=== PATIENT | male | born 1955 | race Caucasian/White ===

== ENCOUNTER 2021-12-02 14:56 | Emergency (ER) | payer MEDICARE, SELFPAY ==
[2021-12-02] VITALS (48 sets, daily range): BP systolic 132–150; BP diastolic 81–112; PULSE 71–95; RESP 15–28; TEMP 36.9; O2SAT 77–100
--- NOTE | ~2021-12-02 | XR_ITS ---
EXAMINATION: XR chest 1V portable DATE: 12/02/2021 17:38 INDICATION: Dyspnea. Hypoxia. TECHNIQUE: frontal view of the chest was obtained. COMPARISON: Thoracic spine MR dated 03/16/2019. FINDINGS: Chronic severe elevation the right hemidiaphragm as seen on prior MRI dated 03/16/2019 no evident airsp doc opacities, pulmonary edema, pleural effusion or pneumothorax. [Shift of the heart and mediastinum with normal heart size. 3 component thoracolumbar scoliosis. Multiple nodular opacities projecting o chung the lateral right chest wall and right shoulder likely corresponding to multiple subcutaneous nod ules suspicious for neurofibromatosis as previously noted on prior MRI. IMPRESSION: 1. Chronic severe elevation the right hemidiaphragm. No acute cardiopulmonary disease. Reviewed, dictated and finalized at location A. IMPRESSION: 1. Chronic severe elevation the right hemidiaphragm. No acute cardiopulmonary d isease.
--- NOTE | ~2021-12-02 | CT_ITS ---
EXAMINATION: CTA chest PE protocol DATE: 12/02/2021 17:48 INDICATION: Shortness of breath. TECHNIQUE: Computed tomography (CT) pulmonary angiogram of the chest was performed with 100 mL Omnipa que-350 intravenous contrast. Additional 3D reconstructions utilizing coronal maximum intensity proje ction (MIP) were performed. Automated exposure control and iterative reconstruction technique were em ployed. The dose-length product was 444.34 mGy-cm. COMPARISON: Thoracic spine MR dated 03/16/2019 FINDINGS: Good contrast opacification of the pulmonary arteries. There is moderate streak artifact from dense c ontrast remains extending from the site of injection in right upper extremity to the right atrium. Mi ld scattered respiratory motion artifact. This decreases sensitivity in the segmental pulmonary arter ies and renders assessment in the segmental and more significantly in some of the smaller subsegmenta l pulmonary arteries. No pulmonary embolism identified. Very large right-sided Bochdalek hernia which contains multiple loops of bowel as well as the right kidney. This occupies portions of the upper ri ght hemithorax and essentially entire mid to lower right hemithorax. The liver remains normally posit ioned. There is secondary partial collapse of the right lung likely resulting from the [place] stalin ia. No pulmonary edema or pleural effusion. No airspace opacities more suspicious for pneumonia. The heart is displaced further towards the left due to the mass effect from the Bochdalek hernia but dion ins normal in size. No pericardial effusion. Thoracic aorta is normal in caliber with no dissection. No pathologically enlarged thoracic lymphadenopathy. 3 component thoracolumbar scoliosis with upper t horacic dextroscoliosis, lower thoracic levoscoliosis and thoracolumbar dextroscoliosis. Again seen a re prominent nerve root sheath cysts with secondary remodeling expansion of the right-sided neural fo ramina at T11-T12 and T12-L1. No significant change in asymmetric thickening and increased soft tissu e density in the right paraspinal musculature at the thoracolumbar junction better appreciated on alexa or MRI which was suspicious for plexiform neurofibroma. Also consistent with neurofibromatosis are nu merous cutaneous nodules. IMPRESSION: 1. No pulmonary embolism. Sensitivity decreased in the segmental and more prominently in some of the smaller subsegmental pulmonary arteries due to combination of streak artifact and scattered mild phil on artifact. 2. Chronic partial collapse of the right lung likely due to volume loss resulting from a chronic very large Bochdalek hernia containing the right kidney and multiple loops of bowel. Difficult to exclude pneumonia in the collapsed portion of the lung. 3. Stigmata of neurofibromatosis type I. See prior thoracic spine MRI for further detail. Reviewed, dictated and finalized at location A. IMPRESSION: 1. No pulmonary embolism. Sensitivity decreased in the segmental and more promi nently in some of the smaller subsegmental pulmonary arteries due to combinatio n of streak artifact and scattered mild motion artifact. 2. Chronic partial collapse of the right lung likely due to volume loss resulti ng from a chronic very large Bochdalek hernia containing the right kidney and m ultiple loops of bowel. Difficult to exclude pneumonia in the collapsed portion of the lung. 3. Stigmata of neurofibromatosis type I. See prior thoracic spine MRI for furth er detail.
--- NOTE | 2021-12-02 15:19 | ECG_ITS ---
Measurements Intervals [place] Rate: 75 P: 60 RI: 156 QRS: 107 QRSD: 101 T: 91 QT: 362 QTc: 406 Interpretive Statements SINUS RHYTHM RIGHT AXIS DEVIATION BORDERLINE R WAVE PROGRESSION, ANTERIOR LEADS BORDERLINE T WAVE ABNORMALITY- ANT/HIGH LAT LEADS BASELINE ARTIFACT- II, III, AVL, AVF, V1-V6 BORDERLINE ECG NO PREVIOUS ECG AVAILABLE FOR COMPARISON Electronically Signed On 12-02-2021 15:55:33 CDT by Pedro Guillaume D.O.
[2021-12-02 15:55] LABS: Basophils Percent Auto 0.7 % (0.2-1.2); Eosinophils Absolute Auto 0.2 K/mm3 (0-0.3); Eosinophils Percent Auto 3.7 % (0-4.4); Hematocrit 44.7 % (42.0-52.0); Hemoglobin 13.8 g/dL (14.0-18.0); Immature Granulocyte Absolute 0.01 K/mm3 (0.00-0.031); Immature Granulocyte Percent A 0.2 % (0-0.5); Lymphocytes Absolute Auto 0.78 K/mm3 (0.9-3.2); Lymphocytes Percent Auto 19.1 % (18.3-44.2); Mean Corpuscular HGB Conc 30.9 g/dl (32-36); Mean Corpuscular Hemoglobin 29.6 pg (26-34); Mean Corpuscular Volume 95.9 fl (80-100); Mean Platelet Volume 9.6 fl (7.4-10.4); Monocytes Absolute Auto 0.4 K/mm3 (0.1-0.6); Monocytes Percent Auto 9.8 % (2.6-8.5); Neutrophils Absolute Auto 2.7 K/mm3 (1.3-6.7); Neutrophils Percent Auto 66.5 % (45.5-73.1); Platelet Count Result 139 k/mm3 (150-375); Red Blood Count 4.66 M/mm3 (4.6-6.20); Red Cell Distribution Width 14.7 % (11.5-14.5); White Blood Count 4.1 K/mm3 (4.5-10.0)
[2021-12-02 16:13] LABS: Alanine Aminotransferase 6 U/L (6-50); Albumin Level 4.1 g/dL (3.5-5.1); Alkaline Phosphatase 76 U/L (38-126); Anion Gap 9 mmol/L (8-16); Aspartate Amino Transferase 20 U/L (17-59); Bilirubin,Total 1.1 mg/dL (0.2-1.3); Blood Urea Nitrogen 12 mg/dL (9-20); Calcium 9.3 mg/dL (8.4-10.2); Carbon Dioxide 31 mmol/L (22-30); Chloride 96 mmol/L (98-107); Estimated CRCL calculation 82 ml/min; Estimated Glomerular Filt Rate > 60; Glucose 90 mg/dL (65-110); Magnesium 1.6 mg/dL (1.6-2.3); Potassium 4.8 mmol/L (3.4-5.0); Sodium 136 mmol/L (137-145)
--- NOTE | 2021-12-02 16:20 | ED.GENADULT ---
HPI - General Adult General Chief complaint: Shortness of Breath/Dyspnea <Mario Rojas MD - Last Filed: 12/02/21 21:16> Stated complaint: SOB <Mario Rojas MD - Last Filed: 12/02/21 21:16> Time Seen by Provider: 12/02/21 15:08 <Mario Rojas MD - Last Filed: 12/02/21 21:16> History of Present Illness HPI narrative: This is a 66-year-old male presenting to ED with a chief complaint of shortness of breath. Patient was scheduled for a cataract surgery earlier today. When they laid him flat on the surgery table he desaturated into the 80s. Patient has no history of heart failure. patient has no complaints at this time. Patient denies chest pain, difficulty breathing, fever, chills, productive cough. <Mario Rojas MD - Last Filed: 12/02/21 21:16> Related Data Home medications: Home Medications Medication Instructions Recorded Confirmed atorvastatin 40 mg tablet 40 mg PO DAILY 12/25/20 01/01/21 ropinirole 1 mg tablet 1 mg PO DAILY 12/25/20 01/01/21 sennosides 8.6 mg tablet (Senna 8.6 mg PO BID 12/25/20 01/01/21 Laxative) <Mario Rojas MD - Last Filed: 12/02/21 21:16> Allergies/adverse reactions: Allergies Allergy/AdvReac Type Severity Reaction Status Date / Time No Known Allergies Allergy Verified 12/02/21 15:14 <Mario Rojas MD - Last Filed: 12/02/21 21:16> Review of Systems Review of Systems: CONSTITUTIONAL: Denies night sweats. EYES: No eye pain ENT: Denies rhinorrhea CARDIOVASCULAR: Denies palpitations RESPIRATORY: Denies hemoptysis GASTROINTESTINAL: Denies hematemesis GENITOURINARY: Denies hematuria. SKIN: Denies rash MUSCULOSKELETAL: Denies myalgia. NEUROLOGIC: Denies weakness. PSYCHIATRIC: Denies delusions <Mario Rojas MD - Last Filed: 12/02/21 21:16> [facility] Past Medical History Medical History: Medical History (Updated 12/02/21 @ 19:07 by Mario Rojas MD) Clinical neurofibromatosis Obstructive sleep apnea Speech impediment <Mario Rojas MD - Last Filed: 12/02/21 21:16> Social History Social History: Social History Smoking status: Never smoker Alcohol intake: never <Mario Rojas MD - Last Filed: 12/02/21 21:16> Exam Narrative: APPEARANCE: No apparent distress. Head atraumatic. EYES: PERRLA/EOMI, NOSE: Normal no drainage NECK: Supple, Trachea midline RESPIRATORY: Clear to auscultation. Patient has decreased lung sounds in the right lower lobe. CARDIOVASCULAR: S1S2 appreciated patient has lower extremity edema ABDOMINAL: Soft, nontender, nondistended, MUSCULOSKELETAl: No obvious deformities NEURO: Alert. Moving 4/4 extremities SKIN:: Warm, dry. Normal color PSYCHIATRIC: Normal affect <Mario Rojas MD - Last Filed: 12/02/21 21:16> Course Course Emergency Course: 12/02 21:15 Care was t/f to Dr. Ledesma pending transfer. <Mario Rojas MD - Last Filed: 12/02/21 21:16> Reevaluation(s) Reevaluation #1: Bed became available and ambulance arrived for transportation. <Karan Ledesma MD - Last Filed: 12/03/21 05:43> Vital Signs Vital signs: Vital Signs Temperature 98.4 F 12/02/21 15:00 Pulse Rate 75 12/02/21 15:00 Respiratory Rate 20 12/02/21 15:00 Blood Pressure 149/92 H 12/02/21 15:00 Pulse Oximetry 99 12/02/21 15:00 Oxygen Delivery Nasal Cannula 12/02/21 15:00 Oxygen Flow Rate 2 12/02/21 15:00 Temperature 98.4 F 12/02/21 15:00 Pulse Rate 80 12/03/21 04:02 Respiratory Rate 18 12/03/21 04:02 Blood Pressure 143/71 H 12/03/21 04:02 Pulse Oximetry 97 12/03/21 04:02 Oxygen Delivery Nasal Cannula 12/02/21 15:06 Oxygen Flow Rate 2 12/02/21 15:06 <Mario Rojas MD - Last Filed: 12/02/21 21:16> Vital Signs Temperature 98.4 F 12/02/21 15:00 Pulse Rate 75 12/02/21 15:00 Respiratory Rate 20 12/02/21 15:00 Blood Pressure 149/92 H 11/08
[2021-12-02 16:22] LABS: INR 1.2; Prothrombin Time 14.7 Seconds (11.1-14.7)
[2021-12-02 16:23] LABS: Partial Thromboplastin Time 32.5 SECONDS (22.3-36.8)
[2021-12-02 16:24] LABS: Troponin I < 0.012 ng/mL (0.000-0.034)
[2021-12-02 16:26] LABS: D Dimer 0.67 ug/mL (<0.48)
[2021-12-02 16:48] LABS: SARS-CoV-2 RNA PCR Negative
[2021-12-02 17:23] LABS: NT Pro B Type Natriuretic Pept 190 pg/mL (5-100)
[2021-12-02 19:37] LABS: Troponin I < 0.012 ng/mL (0.000-0.034)
--- NOTE | 2021-12-02 19:57 | PC.NURSE ---
Report given to Nkiki from [facility] admission, not bed available at this time.
[2021-12-03] VITALS (21 sets, daily range): BP systolic 122–155; BP diastolic 71–88; PULSE 80–81; RESP 18–20; O2SAT 94–100
--- NOTE | 2021-12-03 04:42 | PC.NURSE ---
Geraldine called and updated on bed status. pt will go to room [id number] called report to accepting RN. Awaiting EMS for transport.
== END 2021-12-03 06:53 | disposition short-term general hospital (02) ==
PROVIDERS: Emergency Provider Emergency Medicine; PCP Internal Medicine
DX: R06.00 Dyspnea, unspecified (principal); K44.9 Diaphragmatic hernia without obstruction or gangrene; Q85.01 Neurofibromatosis, type 1; G47.33 Obstructive sleep apnea (adult) (pediatric); R47.9 Unspecified speech disturbances; Z20.822 Contact with and (suspected) exposure to COVID-19; R94.31 Abnormal electrocardiogram [ECG] [EKG]
CPT/HCPCS: 36415; 71045; 71275; 80053; 83735; 83880; 84484; 85025; 85380; 85610; 85730; 93005; 99285; C9803; Q9967; U0003; U0005